=== PATIENT | male | born 1940 | race Caucasian/White ===

== ENCOUNTER 2025-01-17 19:39 | Inpatient (IN) | payer OTHER, BC ==
[2025-01-17 20:51] LABS: ABSOLUTE IMMATURE GRANULOCYTES 0.02 x10^3/uL (0.0-0.031); BASOPHILS # 0.03 x10^3/uL (0.01-0.08); EOSINOPHIL % 0.4 % (0.8-7.0); EOSINOPHILS # 0.03 x10^3/uL (0.04-0.54); MCHC 32.6 g/dl (32.3-36.5); MEAN CELL VOLUME 97.9 fl (79.0-92.2); MEAN PLT VOLUME 10.1 fl (9.4-12.4); MONOCYTE # 0.54 x10^3/uL (0.30-0.82); MONOCYTE % 7.6 % (5.3-12.2); RDW 14.2 % (12.6-16.6)
[2025-01-17 20:55] LABS: INR 1.05 (0.83-1.09); PROTHROMBIN TIME (PATIENT) 11.4 SEC (9.7-13.0)
[2025-01-17 20:57] LABS: ACTIVATED PTT 27.7 SECONDS (25.2-36.5)
[2025-01-17 21:13] LABS: CO2 29.0 mmol/L (21-32); GLUCOSE,RANDOM 104.0 mg/dL (74-106)
[2025-01-17 21:15] LABS: CREATININE 1.3 mg/dL (0.55-1.3); SGOT/AST 21.0 U/L (15-37); SGPT/ALT 14.0 U/L (13-61)
[2025-01-17 21:18] LABS: ALK PHOS 66.0 U/L (45-117); TOT PROT 5.6 g/dl (6.4-8.2)
[2025-01-17 21:21] LABS: N-TERMINAL BNP 14593.9 pg/ml (5-450)
[2025-01-17 21:37] LABS: URINE APPEARANCE Slightly Cloudy; URINE BILIRUBIN Negative (NEGATIVE); URINE COLOR Other; URINE GLUCOSE (UA) Negative (NEGATIVE); URINE KETONE Negative (NEGATIVE); URINE LEUK ESTERASE 1+ (NEGATIVE); URINE NITRITE Negative (NEGATIVE); URINE PROTEIN 1+ (NEGATIVE); URINE UROBILINOGEN 0.2 mg/dL (0.2-1.0)
[2025-01-17] MEDS ORDERED: FUROSEMIDE 40 MG/4 ML INJECTABLE VIAL ONE (22:44)
[2025-01-17] MEDS: FUROSEMIDE 40 MG/4 ML INJECTABLE VIAL IVPUSH ONE (22:54)
[2025-01-17 23:24] LABS: EPI CELLS 1.7 /uL (0-25.1); HYALINE CASTS 1.25 /uL (0-3.1); URINE BACTERIA 690.3 /uL (0-1359); URINE RBC 40.5 /uL (0-23.9); URINE WBC 716.6 /uL (0-25.8)
[2025-01-18] MEDS ORDERED: PIPERACILLIN/TAZOB 4.5 GM 4.5 GM/100 ML BAG IVPB ONE (01:03)
[2025-01-18] MEDS: PIPERACILLIN/TAZOB 4.5 GM 4.5 GM in DEXTROSE 5%-WATER 100 ML IVPB ONE (01:28)
[2025-01-18] MEDS: VANCOMYCIN/WATER FOR INJ (PEG) 1,000 MG/200 ML BAG IVPB ONE (02:32)
[2025-01-18] MEDS: FUROSEMIDE 40 MG/4 ML INJECTABLE VIAL IVPUSH ONE (02:32)
[2025-01-18] MEDS: HYDROCORTISONE 10 MG TABLET PO SCH (06:14)
[2025-01-18 08:20] LABS: ABSOLUTE IMMATURE GRANULOCYTES 0.02 x10^3/uL (0.0-0.031); BASOPHILS # 0.04 x10^3/uL (0.01-0.08); EOSINOPHIL % 0.9 % (0.8-7.0); EOSINOPHILS # 0.07 x10^3/uL (0.04-0.54); MCHC 32.8 g/dl (32.3-36.5); MEAN CELL VOLUME 98.9 fl (79.0-92.2); MEAN PLT VOLUME 10.8 fl (9.4-12.4); MONOCYTE # 0.95 x10^3/uL (0.30-0.82); MONOCYTE % 12.8 % (5.3-12.2); RDW 14.1 % (12.6-16.6)
[2025-01-18 08:59] LABS: CO2 32.0 mmol/L (21-32); GLUCOSE,RANDOM 77.0 mg/dL (74-106)
[2025-01-18 09:03] LABS: SGOT/AST 18.0 U/L (15-37); SGPT/ALT 12.0 U/L (13-61)
[2025-01-18 09:04] LABS: CREATININE 1.4 mg/dL (0.55-1.3); TOT PROT 5.2 g/dl (6.4-8.2)
[2025-01-18 09:06] LABS: ALK PHOS 55.0 U/L (45-117)
[2025-01-18] MEDS: TAMSULOSIN HCL 0.4 MG CAP PO SCH (09:28)
[2025-01-18] MEDS: ASPIRIN COATED 81 MG TABLET.EC PO SCH (10:13)
[2025-01-18] MEDS: ENOXAPARIN NA (PORCINE) 40 MG/0.4 ML DISP.SYRIN SQ SCH (10:14)
[2025-01-18] MEDS: FINASTERIDE 5 MG TABLET (FP) PO SCH (10:14)
[2025-01-18] MEDS: POTASSIUM CHLORIDE ORAL LIQUID 20 MEQ/15 ML PO ONE (12:15)
[2025-01-18 18:10] VITALS: BMI 22.2
[2025-01-18 20:56] LABS: LDL CHOLESTEROL (ONLY SJRH) 123.0 mg/dL (5-100)
[2025-01-18] MEDS: traZODone HCL 100 MG TABLET (FP) PO SCH (21:43)
[2025-01-19 08:23] LABS: MCHC 32.5 g/dl (32.3-36.5); MEAN CELL VOLUME 98.1 fl (79.0-92.2); MEAN PLT VOLUME 10.5 fl (9.4-12.4); RDW 14.3 % (12.6-16.6)
[2025-01-19 08:55] LABS: GLUCOSE,RANDOM 67.0 mg/dL (74-106)
[2025-01-19 08:56] LABS: CO2 31.0 mmol/L (21-32)
[2025-01-19 08:59] LABS: CREATININE 1.5 mg/dL (0.55-1.3)
[2025-01-19 09:01] LABS: LDL CHOLESTEROL (ONLY SJRH) 143.0 mg/dL (5-100)
[2025-01-19] MEDS: FUROSEMIDE 40 MG/4 ML INJECTABLE VIAL IVPUSH SCH (09:39)
[2025-01-19] MEDS ORDERED: FUROSEMIDE 20 MG TABLET (FP) PO SCH (10:00)
[2025-01-19] MEDS: POTASSIUM CHLORIDE ORAL LIQUID 20 MEQ/15 ML PO ONE (12:13)
[2025-01-20 07:01] LABS: MCHC 33.0 g/dl (32.3-36.5); MEAN CELL VOLUME 97.8 fl (79.0-92.2); MEAN PLT VOLUME 10.6 fl (9.4-12.4); RDW 14.2 % (12.6-16.6)
[2025-01-20 07:29] LABS: CO2 31.0 mmol/L (21-32)
[2025-01-20 07:30] LABS: GLUCOSE,RANDOM 84.0 mg/dL (74-106)
[2025-01-20 07:33] LABS: CREATININE 1.5 mg/dL (0.55-1.3)
[2025-01-20 11:13] VITALS: BP 124/79; PULSE 78; RESP 16; TEMP 98.1
== END 2025-01-20 13:38 | disposition home or self-care (01) | DRG 291 ==
LOC: JER 19:39 → JERBED 23:08 → J4S 01-18 01:48
PROVIDERS: ADMIT Hospitalist; ATTEND Internal Medicine
DX: I13.0 Hypertensive heart and chronic kidney disease with heart failure and stage 1 through stage 4 chronic kidney disease, or unspecified chronic kidney disease (principal); I50.33 Acute on chronic diastolic (congestive) heart failure; E27.40 Unspecified adrenocortical insufficiency; K50.90 Crohn's disease, unspecified, without complications; I45.2 Bifascicular block; I42.2 Other hypertrophic cardiomyopathy; N40.0 Benign prostatic hyperplasia without lower urinary tract symptoms; R42 Dizziness and giddiness; M48.061 Spinal stenosis, lumbar region without neurogenic claudication; N18.9 Chronic kidney disease, unspecified; I95.1 Orthostatic hypotension
CPT/HCPCS: 36415; 70450-TC; 71045-TC-FY; 80048; 80053; 80061; 81003; 83735; 83880; 84100; 84443; 84484; 85025; 85027; 85610; 85730; 86850; 86900; 86901; 87086; 93005; 93010; 93306-TC; 93880-TC; 97116-GP; 97161-GP; 99285-25